=== PATIENT | female | born 1980 | race Caucasian/White ===

== ENCOUNTER 2019-06-18 08:00 | Emergency (ER) | payer OTHER ==
[~2019-06-18] VITALS: Ht 180.3 cm; Wt 82.0 kg
--- NOTE | 2019-06-18 08:41 | PHYS DOC ---
Adult General Chief Complaint Chief Complaint: SHOULDER INJURY HPI HPI 39 year old female presents with left shoulder pain. The patient has had an MRI recently and has known labral tear. She had a therapeutic massage on Tuesday of last week of the shoulder area was feeling okay. She was rubbing the posterior part of her shoulder herself sitting at the table on Tuesday and felt her shoulder dislocate. She sat up straight and it relocated. She's never had this happen before. 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 Yesterday, a friend became over there is a physical therapist. She was moving the patient's arm around to evaluate her shoulder and since that time the patient has had excruciating pain in the central shoulder. She has taken her Ultram without any relief. She is concerned that there something more acutely wrong since the dislocation. She denies falls or trauma. Review of Systems Review of Systems Constitutional: Denies fever or chills [] Eyes: Denies change in visual acuity, redness, or eye pain [] HENT: Denies nasal congestion or sore throat [] Respiratory: Denies cough or shortness of breath [] Cardiovascular: No additional information not addressed in HPI [] GI: Denies abdominal pain, nausea, vomiting, bloody stools or diarrhea [] : Denies dysuria or hematuria [] Musculoskeletal: Left shoulder pain[] Integument: Denies rash or skin lesions [] Neurologic: Denies headache, focal weakness or sensory changes [] Endocrine: Denies polyuria or polydipsia [] All other systems were reviewed and found to be within normal limits, except as documented in this note. Allergies Allergies Allergies Coded Allergies Type Severity Reaction Last Updated Verified NSAIDS (Non-Steroidal Anti-Inflamma Allergy Unknown 06/18/19 Yes Penicillins Allergy Unknown 06/18/19 Yes erythromycin base Allergy Unknown 06/18/19 Yes meperidine Allergy Unknown 06/18/19 Yes Physical Exam Physical Exam Constitutional: Well developed, well nourished, mild acute distress, non-toxic appearance. [] HENT: Normocephalic, atraumatic, bilateral external ears normal, oropharynx moist, no oral exudates, nose normal. [] Eyes: PERRLA, EOMI, conjunctiva normal, no discharge. [] Neck: Normal range of motion, no tenderness, supple, no stridor. [] Cardiovascular:Heart rate regular rhythm, no murmur [] Lungs & Thorax: Bilateral breath sounds clear to auscultation [] Abdomen: Bowel sounds normal, soft, no tenderness, no masses, no pulsatile masses. [] Skin: Warm, dry, no erythema, no rash. [] Back: No tenderness, no CVA tenderness. [] Extremities: Left shoulder exam deferred due to history and pain[] Neurologic: Alert and oriented X 3, normal motor function, normal sensory fun ction, no focal deficits noted. [] Psychologic: Affect normal, judgement normal, mood normal. [] EKG EKG [] Radiology/Procedures Radiology/Procedures [] Impressions: SHOULDER 2+V LEFT History: Shoulder pain. Recent dislocation. Technique: 3 views left shoulder. Comparison: None. Findings: Normal alignment of the glenohumeral and acromioclavicular joints. No fracture. Soft tissues unremarkable. Impression: 1. No acute osseous abnormality. Electronically signed by: Yuliana Baer DO (06/18/2019 9:15 AM) [id number] DICTATED AND SIGNED BY: YULIANA BAER DO DATE: 06/18/19914 CC: HANNA ACUÑA DO; JIM HAGER ~ Course & Med Decision Making Course & Med Decision Making Pertinent Labs and Imaging studies reviewed. (See chart for details) The patient's labs are unremarkable. Her x-ray does not show any acute osseous findings. The patient has required 2 doses of morphine 4 mg each. Review of the narcotics database shows that she is not having a prescription since November 2018. It is possible that she has a piece of the labrum inside the shoulder capsule. This could be causing her significant pain. I've advised that she follow-up today with her orthopedic surgeon. I will discharge her on a short course of Jasper 7.5 times. She is stable for discharge at this time. [] Dragon Disclaimer Dragon Disclaimer This electronic medical record was generated, in whole or in part, using a voice recognition dictation system. Departure Departure: Impression: Primary Impression: Left shoulder pain Disposition: 01 HOME, SELF-CARE Condition: STABLE Referrals: JIM HAGER (PCP) Patient Instructions: Shoulder Pain, [id number] Scripts Hydrocodone Bit/Acetaminophen (NORCO 7.5-325 TABLET) 1 Each Tablet 1 TAB PO PRN Q6HRS PRN for PAIN, #14 TAB 0 Refills Prov: HANNA ACUÑA DO 06/18/19 Problem Qualifiers Primary Impression: Left shoulder pain Chronicity: acute Qualified Codes: M25.512 - Pain in left shoulder HANNA ACUÑA DO Jun 18, 2019 08:41
[2019-06-18] MEDS ORDERED: IV NORMAL SALINE 1,000ML 1,000 ML IV ONE (08:45)
[2019-06-18] MEDS ORDERED: MORPHINE SULFATE 4 MG/ML DISP.SYRIN. IV ONE ×2 (08:45→10:00)
[2019-06-18 08:57] LABS: BASO % 1 % (0-3); EOS # 0.1 x10^3/uL (0.0-0.7); EOS % 2 % (0-3); HEMATOCRIT 41.9 % (36.0-47.0); HEMOGLOBIN 14.2 g/dL (12.0-15.5); LYMPH # 1.3 x10^3/uL (1.0-4.8); LYMPH % 31 % (24-48); MEAN CORPUSCULAR HEMOGLOBIN 30 pg (25-35); MEAN CORPUSCULAR HGB CONC 34 g/dL (31-37); MEAN CORPUSCULAR VOLUME 89 fL (79-100); MONO # 0.5 x10^3/uL (0.0-1.1); MONO % 12 % (0-9); NEUT # 2.4 x10^3uL (1.8-7.7); NEUT % 55 % (31-73); PLATELET COUNT 191 x10^3/uL (140-400); RED CELL DISTRIBUTION WIDTH 12.9 % (11.5-14.5); WHITE BLOOD COUNT 4.4 x10^3/uL (4.0-11.0)
[2019-06-18 09:05] LABS: CALCIUM 8.6 mg/dL (8.5-10.1); CREATININE 0.9 mg/dL (0.6-1.0); GFR 70.5; POTASSIUM 4.3 mmol/L (3.5-5.1)
[2019-06-18 09:11] LABS: ALBUMIN 3.9 g/dL (3.4-5.0); ALBUMIN/GLOBULIN RATIO 1.2 (1.0-1.7); TOTAL BILIRUBIN 0.2 mg/dL (0.2-1.0); TOTAL PROTEIN 7.2 g/dL (6.4-8.2)
[2019-06-18] MEDS ORDERED: ONDANSETRON PF 4 MG/2 ML VIAL. IVP ONE (09:15)
--- NOTE | 2019-06-18 09:18 | RAD ---
SHOULDER 2+V LEFT History: Shoulder pain. Recent dislocation. Technique: 3 views left shoulder. Comparison: None. Findings: Normal alignment of the glenohumeral and acromioclavicular joints. No fracture. Soft tissues unremarkable. Impression: 1. No acute osseous abnormality. Electronically signed by: Juanpablo Naik DO (06/18/2019 9:15 AM) [id number]
[2019-06-18 09:25] VITALS: BP 116/76
[2019-06-18] MEDS ORDERED: HYDR-3166 PO (09:31)
== END 2019-06-18 10:05 | disposition home or self-care (01) ==
LOC: ER 08:00
DX: M25.512 Pain in left shoulder (principal); Z88.1 Allergy status to other antibiotic agents; Z88.0 Allergy status to penicillin; Z88.5 Allergy status to narcotic agent; Z88.6 Allergy status to analgesic agent
CPT/HCPCS: 36415; 73030; 80053; 85025; 96374; 96375; 99284; J2270; J2405; J7030

== ENCOUNTER 2020-05-19 09:53 | Emergency (ER) | payer OTHER ==
[~2020-05-19] VITALS: Ht 180.3 cm; Wt 86.6 kg
[~2020-05-19 09:53] MED LIST: HYDR-3166 PO
[2020-05-19] MEDS ORDERED: IV NORMAL SALINE 1,000ML 1,000 ML IV ONE (11:00)
[2020-05-19] MEDS ORDERED: PROCHLORPERAZINE 10 MG/2 ML VIAL. IV ONE (11:15)
[2020-05-19] MEDS ORDERED: diphenhydrAMINE 50 MG/ML VIAL IVP ONE (11:15)
[2020-05-19 11:16] LABS: CALCIUM 8.9 mg/dL (8.5-10.1); GFR 62.1; POTASSIUM 4.1 mmol/L (3.5-5.1)
[2020-05-19 11:18] LABS: BASO % 1 % (0-3); EOS # 0.1 x10^3/uL (0.0-0.7); EOS % 2 % (0-3); HEMATOCRIT 41.3 % (36.0-47.0); LYMPH # 1.3 x10^3/uL (1.0-4.8); LYMPH % 23 % (24-48); MEAN CORPUSCULAR HEMOGLOBIN 30 pg (25-35); MEAN CORPUSCULAR HGB CONC 34 g/dL (31-37); MEAN CORPUSCULAR VOLUME 89 fL (79-100); MONO # 0.6 x10^3/uL (0.0-1.1); MONO % 11 % (0-9); NEUT # 3.6 x10^3uL (1.8-7.7); NEUT % 65 % (31-73); PLATELET COUNT 189 x10^3/uL (140-400); RED BLOOD COUNT 4.66 x10^6/uL (3.50-5.40); RED CELL DISTRIBUTION WIDTH 12.7 % (11.5-14.5); WHITE BLOOD COUNT 5.6 x10^3/uL (4.0-11.0)
--- NOTE | 2020-05-19 11:27 | PHYS DOC ---
Past History Past Medical History: Anemia, CVA, Migraines, Other Additional Past Medical Histor: HHT GENETIC VASCULAR CONDITION, PE X 2 Past Surgical History: Appendectomy, Cholecystectomy, , Other Additional Past Surgical Histo: LEFT HIP Alcohol Use: None General Adult EDM: Chief Complaint: HEADACHE HPI: HPI: Patient is a 40-year-old female with a history of HHT coming in for 2 weeks of worsening headache with vision changes. 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 States she started having pain behind her left sinus and I started out as a pressure 3 days after. Patient has a history of migraines and has a "migraine protocol". States she has not been getting any relief. States that headache and vision changes are worse in the afternoon. States that she woke up today with blurred vision and pain at a 4 out of 10 this morning. States she occasionally has to go to the emergency department for IV treatment of her migraines. Patient states this feels different from her typical migraines but slower behind the eye than it typically is. States that she will start seeing "auras" around lunchtime but then has severely blurred vision in the left eye by the afternoon evening time. Has been taking her Fioricet without improvement. Also started having chest pain last night she describes as left-sided that comes in waves and radiates to the back. She has a history of pulmonary embolisms but states she has not had any problems them recently since her anemia has been stable. Is on any blood thinners. Also has a history of intestinal bleeding due to her condition. Not noted any tarry stools or blood in her stool recently. Review of Systems: Review of Systems: All other systems within normal limits except for as noted in the HPI Current Medications: Current Meds: Current Medications Medications (Trade) Dose Ordered Sig/Cassidy Start Time Stop Time Status Last Admin Dose Admin Diphenhydramine HCl (Benadryl) 50 mg 1X ONCE 05/19/20 11:15 05/19/20 11:16 DC Prochlorperazine Edisylate (Compazine) 10 mg 1X ONCE 05/19/20 11:15 05/19/20 11:16 DC Sodium Chloride 1,000 ml @ 1,000 mls/hr 1X ONCE 05/19/20 11:00 05/19/20 11:59 Allergies: Allergies: Allergies Coded Allergies Type Severity Reaction Last Updated Verified NSAIDS (Non-Steroidal Anti-Inflamma Allergy Unknown 06/18/19 Yes Penicillins Allergy Unknown 06/18/19 Yes erythromycin base Allergy Unknown 06/18/19 Yes meperidine Allergy Unknown 06/18/19 Yes Physical Exam: PE: Constitutional: Well developed, well nourished, no acute distress, non-toxic appearance. [] HENT: Normocephalic, atraumatic, bilateral external ears normal, nose normal. [] Eyes: PERRLA, conjunctiva normal, no discharge, extraocular is intact, symmetric pressures. [] Neck: No rigidity, supple, no stridor. [] Cardiovascular: Regular rate and rhythm, brisk cap refill, symmetric upper extremity pulses, no murmurs rubs or gallops [] Lungs & Thorax: Non labored symmetric respirations, no tachypnea or respiratory distress. Lung sounds clear to auscultation [] Abdomen: Soft, nondistended. Skin: Warm, dry, no erythema, no rash. [] Back: Unremarkable Extremities: No deformities, range of motion grossly intact, no lower extremity edema [] Neurologic: Alert and oriented X 3, no focal deficits noted. [] Psychologic: Affect normal, judgement normal, mood normal. [] Current Patient Data: Labs: Laboratory Tests Test 05/19/20 10:39 POC Urine HCG, Qualitative hcg negative (Negative) Vital Signs: Vital Signs Date Time Temp Pulse Resp B/P (MAP) Pulse Ox O2 Delivery O2 Flow Rate FiO2 05/19/20 10:05 98.5 86 20 121/72 (88) 97 Room Air EKG: EKG: Normal sinus rhythm with right axis deviation, no ST elevation or depression, no ectopy, normal intervals. [] Radiology/Procedures: Radiology/Procedures: CT HEAD WITHOUT AND WITH IV CONTRAST History: Reason: Pain. Thrombosis, venogram - per Dr Saleem 60 sec delay / Spl. Instructions: / History: Comparison: None. Technique: CT of the head without and with intravenous contrast. Venogram protocol. Exposure: One or more of the following individualized dose reduction techniques were utilized for this examination: 1. Automated exposure control 2. Adjustment of the mA and/or kV according to patient size 3. Use of iterative reconstruction technique. Findings: No intracranial hemorrhage. No mass effect. No hydrocephalus. Extra-axial spaces are unremarkable. Patent superior sagittal, straight, transverse and sigmoid venous sinuses. No evidence of thrombosis or stenosis. No pathologic enhancement. Imaged orbits are unremarkable. Imaged paranasal sinuses and mastoid air cells are clear. No acute calvarial fracture. Impression: 1. No acute intracranial abnormality. 2. No evidence of dural venous sinus thrombosis. [] Heart Score: Risk Factors: Risk Factors: DM, Current or recent (<one month) smoker, HTN, HLP, family history of CAD, obesity. Risk Scores: Score 0 - 3: 2.5% MACE over next 6 weeks - Discharge Home Score 4 - 6: 20.3% MACE over next 6 weeks - Admit for Clinical Observation Score 7 - 10: 72.7% MACE over next 6 weeks - Early Invasive Strategies Course & Med Decision Making: Course & Med Decision Making Pertinent Labs and Imaging studies reviewed. (See chart for details) Labs and CT normal. Patient's headache pain improved down to a 2 out of 10. Patient is requesting to go home to rest instead of any further medical management in the emergency department. Discussed return precautions. Patient discharged with . [] Dragon Disclaimer: Dragon Disclaimer: This electronic medical record was generated, in whole or in part, using a voice recognition dictation system. Departure Departure: Impression: Primary Impression: Migraine Disposition: 01 DC HOME SELF CARE/HOMELESS Condition: IMPROVED Referrals: JIM HAGER (PCP) Patient Instructions: General Headache Without Cause Scripts Hydrocodone/Acetaminophen (Hydrocodone-Acetamin 5-325 mg) 1 Each Tablet 1 EACH PO PRN Q6-8HRS PRN for PAIN for 3 Days, #10 TAB Prov: GAUDENCIO RAY MD 05/19/20 Promethazine Hcl (PROMETHAZINE HCL) 25 Mg Tablet 1 TAB PO PRN Q6HRS PRN for 5, #20 TAB Prov: GAUDENCIO RAY MD 05/19/20 GAUDENCIO RAY MD May 19, 2020 11:27
[2020-05-19 11:29] LABS: ALBUMIN/GLOBULIN RATIO 1.2 (1.0-1.7); C REACTIVE PROTEIN 0.5 mg/L (0-3.3); MAGNESIUM 1.9 mg/dL (1.8-2.4); TOTAL BILIRUBIN 0.3 mg/dL (0.2-1.0); TOTAL PROTEIN 7.3 g/dL (6.4-8.2)
[2020-05-19 11:36] LABS: BILIRUBIN,URINE NEG (NEG); CLARITY,URINE CLEAR; COLOR,URINE YELLOW; GLUCOSE,URINE NEG (NEG)
[2020-05-19 11:37] VITALS: BP 94/55
[2020-05-19 11:37] LABS: NITRITE,URINE NEG (NEG)
[2020-05-19 11:38] LABS: BACTERIA,URINE 0 /HPF (0-FEW); RBC,URINE OCC /HPF (0-2); SQUAMOUS EPITHELIAL CELL,UR MOD /LPF; WBC,URINE OCC /HPF (0-4)
[2020-05-19] MEDS ORDERED: CONTRAST GIVEN. MC PRN (12:30)
[2020-05-19] MEDS ORDERED: IOHEXOL 300 MG/ML 75 ML VIAL. IV ONE (12:30)
--- NOTE | 2020-05-19 13:01 | RAD ---
CT HEAD WITHOUT AND WITH IV CONTRAST History: Reason: Pain. Thrombosis, venogram - per Dr Saleem 60 sec delay / Spl. Instructions: / Hist ory: Comparison: None. Technique: CT of the head without and with intravenous contrast. Venogram protocol. Exposure: One or more of the following individualized dose reduction techniques were utilized for thi s examination: 1. Automated exposure control 2. Adjustment of the mA and/or kV according to patient size 3. Use of iterative reconstruction technique. Findings: No intracranial hemorrhage. No mass effect. No hydrocephalus. Extra-axial spaces are unremarkable. Patent superior sagittal, straight, transverse and sigmoid venous sinuses. No evidence of thrombosis or stenosis. No pathologic enhancement. Imaged orbits are unremarkable. Imaged paranasal sinuses and mastoid air cells are clear. No acute ca lvarial fracture. Impression: 1. No acute intracranial abnormality. 2. No evidence of dural venous sinus thrombosis. Electronically signed by: Juanpablo Naik DO (05/19/2020 12:59 PM) [id number]
[2020-05-19] MEDS ORDERED: DEXAMETHASONE SOD PHOS 10 MG/ML VIAL. IVP ONE (13:15)
[2020-05-19] MEDS ORDERED: HYDR-2759 PO (13:52)
[2020-05-19] MEDS ORDERED: PROM25TA10 PO (13:52)
--- NOTE | 2020-05-19 18:38 | EKG ---
[facility] ED [facility] [address] [place] [id number] Test Date: 2020-05-19 Test Time: 10:52:52 Pat Name: VERO SINGH Department: Room: Gender: F Doctor Of Nurse Anesthesia Practice: [facility] : 1980 Requested By: GAUDENCIO RAY Order Number: [id number] Reading MD: Serafin Jo Measurements Intervals [place] Rate: 82 P: 59 VT: 122 QRS: 97 QRSD: 82 T: 30 QT: 378 QTc: 445 Interpretive Statements SINUS RHYTHM Electronically Signed On 05-20-2020 9:06:27 [employer] MAINTAIN[employer] by Serafin Jo
== END 2020-05-19 13:58 | disposition home or self-care (01) ==
LOC: ER 09:53
DX: G43.909 Migraine, unspecified, not intractable, without status migrainosus (principal); R07.89 Other chest pain; I78.0 Hereditary hemorrhagic telangiectasia; Z86.2 Personal history of diseases of the blood and blood-forming organs and certain disorders involving the immune mechanism; Z86.73 Personal history of transient ischemic attack (TIA), and cerebral infarction without residual deficits; Z88.0 Allergy status to penicillin; Z88.6 Allergy status to analgesic agent; Z88.8 Allergy status to other drugs, medicaments and biological substances
CPT/HCPCS: 36415; 70470; 80053; 81001; 81025; 83605; 83735; 83880; 84484; 85025; 85379; 86140; 87040; 93005; 96361; 96374; 96375; 99285; J0780; J1100; J1200; J3010; J7030; Q9967

== ENCOUNTER 2020-11-18 10:24 | Emergency (ER) | payer OTHER ==
[~2020-11-18] VITALS: Ht 180.3 cm; Wt 75.0 kg
[~2020-11-18 10:24] MED LIST changes: +HYDR-2759 PO; +PROM25TA10 PO
[2020-11-18] MEDS: IV NORMAL SALINE 1,000ML 1,000 ML IV ONE (11:05)
[2020-11-18 11:17] LABS: BASO % 1 % (0-3); EOS # 0.1 x10^3/uL (0.0-0.7); EOS % 2 % (0-3); HEMATOCRIT 40.9 % (36.0-47.0); HEMOGLOBIN 13.8 g/dL (12.0-15.5); LYMPH # 1.2 x10^3/uL (1.0-4.8); LYMPH % 22 % (24-48); MEAN CORPUSCULAR HEMOGLOBIN 30 pg (25-35); MEAN CORPUSCULAR HGB CONC 34 g/dL (31-37); MEAN CORPUSCULAR VOLUME 90 fL (79-100); MONO # 0.6 x10^3/uL (0.0-1.1); MONO % 11 % (0-9); NEUT # 3.6 x10^3uL (1.8-7.7); NEUT % 65 % (31-73); PLATELET COUNT 174 x10^3/uL (140-400); RED BLOOD COUNT 4.55 x10^6/uL (3.50-5.40); RED CELL DISTRIBUTION WIDTH 13.1 % (11.5-14.5); WHITE BLOOD COUNT 5.6 x10^3/uL (4.0-11.0)
--- NOTE | 2020-11-18 11:18 | PHYS DOC ---
Past History Past Medical History: Anemia, CVA, Migraines, Other Additional Past Medical Histor: HHT GENETIC VASCULAR CONDITION, PE X 2 Past Surgical History: No Surgical History Additional Past Surgical Histo: LEFT HIP Alcohol Use: None General Adult EDM: Chief Complaint: DIZZY/LIGHT HEADED HPI: HPI: Patient is a 40-year-old female being seen in the ER for dizziness/lightheadedness that started 2 days ago. Patient reports that she st arted noticing "vertigo spells". Patient reports that she has a history of migraines, vertigo, AVM, HHT. Patient reports of the last time that she had dizziness she was also having a GI bleed. Patient denies blood in stools, nausea, vomiting, headache, chest pain, shortness of breath, abdominal pain. Patient reports that the dizziness is worse with position changes. Review of Systems: Review of Systems: 14 body systems of the review of systems have been reviewed. See HPI for pertinent positive and negative responses, otherwise all other systems are negative, nonpertinent or noncontributory Current Medications: Current Meds: Current Medications Medications (Trade) Dose Ordered Sig/Cassidy Start Time Stop Time Status Last Admin Dose Admin Sodium Chloride 1,000 ml @ 1,000 mls/hr 1X ONCE 11/18/20 10:45 11/18/20 11:44 11/18/20 11:05 1,000 MLS/HR Allergies: Allergies: Allergies Coded Allergies Type Severity Reaction Last Updated Verified NSAIDS (Non-Steroidal Anti-Inflamma Allergy Unknown 06/18/19 Yes Penicillins Allergy Unknown 06/18/19 Yes erythromycin base Allergy Unknown 06/18/19 Yes meperidine Allergy Unknown 06/18/19 Yes Physical Exam: PE: Constitutional: Well developed, well nourished, no acute distress, non-toxic appearance. [] HENT: Normocephalic, atraumatic, bilateral external ears normal, oropharynx moist, no oral exudates, nose normal. [] Eyes: PERRLA, EOMI, conjunctiva normal, no discharge. [] Neck: Normal range of motion, no tenderness, supple, no stridor. [] Cardiovascular:Heart rate regular rhythm, no murmur [] Lungs & Thorax: Bilateral breath sounds clear to auscultation [] Abdomen: Bowel sounds normal, soft, no tenderness, no masses, no pulsatile masses. [] Skin: Warm, dry, no erythema, no rash. [] Back: Normal range of motion Extremities: No tenderness, no cyanosis, no clubbing, ROM intact, no edema. [] Neurologic: Alert and oriented X 3, normal motor function, normal sensory function, no focal deficits noted. [] Psychologic: Affect normal, judgement normal, mood normal. [] Current Patient Data: Labs: Laboratory Tests Test 11/18/20 10:58 11/18/20 11:45 White Blood Count 5.6 x10^3/uL Red Blood Count 4.55 x10^6/uL Hemoglobin 13.8 g/dL Hematocrit 40.9 % Mean Corpuscular Volume 90 fL Mean Corpuscular Hemoglobin 30 pg Mean Corpuscular Hemoglobin Concent 34 g/dL Red Cell Distribution Width 13.1 % Platelet Count 174 x10^3/uL Neutrophils (%) (Auto) 65 % Lymphocytes (%) (Auto) 22 % Monocytes (%) (Auto) 11 % Eosinophils (%) (Auto) 2 % Basophils (%) (Auto) 1 % Neutrophils # (Auto) 3.6 x10^3uL Lymphocytes # (Auto) 1.2 x10^3/uL Monocytes # (Auto) 0.6 x10^3/uL Eosinophils # (Auto) 0.1 x10^3/uL Basophils # (Auto) 0.0 x10^3/uL Sodium Level 141 mmol/L Potassium Level 4.1 mmol/L Chloride Level 105 mmol/L Carbon Dioxide Level 30 mmol/L Anion Gap 6 Blood Urea Nitrogen 13 mg/dL Creatinine 0.7 mg/dL Estimated GFR (Cockcroft-Gault) 93.6 BUN/Creatinine Ratio 19 Glucose Level 88 mg/dL Calcium Level 8.5 mg/dL Total Bilirubin 0.4 mg/dL Aspartate Amino Transf (AST/SGOT) 24 U/L Alanine Aminotransferase (ALT/SGPT) 27 U/L Alkaline Phosphatase 51 U/L Troponin I Quantitative < 0.017 ng/mL Total Protein 6.7 g/dL Albumin 3.9 g/dL Albumin/Globulin Ratio 1.4 Urine Collection Type Unknown Urine Color Straw Urine Clarity Clear Urine pH 7.5 Urine Specific [place] 1.010 Urine Protein Neg Urine Glucose (UA) Neg mg/dL Urine Ketones (Stick) Neg mg/dL Urine Blood Neg Urine Nitrite Neg Urine Bilirubin Neg Urine Urobilinogen Dipstick 0.2 mg/dL Urine Leukocyte Esterase Neg Urine RBC 0 /HPF Urine WBC 0 /HPF Urine Squamous Epithelial Cells Mod /LPF Urine Bacteria 0 /HPF Current Medications Medications (Trade) Dose Ordered Sig/Cassidy Route PRN Reason Start Time Stop Time Status Last Admin Dose Admin Sodium Chloride 1,000 ml @ 1,000 mls/hr 1X ONCE IV 11/18/20 10:45 11/18/20 11:44 DC 11/18/20 11:05 Vital Signs: Vital Signs Date Time Temp Pulse Resp B/P (MAP) Pulse Ox O2 Delivery O2 Flow Rate FiO2 11/18/20 10:34 79 18 125/74 100 Room Air EKG: EKG: EKG performed by ER staff at 1141 shows sinus rhythm, no STEMI as read Dr. Paiz at 1148. [] Radiology/Procedures: Radiology/Procedures: PROCEDURE: CT HEAD WO CONTRAST EXAM: CT HEAD WITHOUT CONTRAST. HISTORY: Dizziness, headache. TECHNIQUE: Computed tomography of the head was performed without intravenous contrast. One or more of the following individualized dose reduction techniques were utilized for this examination: 1. Automated exposure control. 2. Adjustment of the mA and/or kV according to patient size. 3. Use of iterative reconstruction technique. COMPARISON: 05/19/2020. FINDINGS: There is no intracranial hemorrhage. Saini-white differentiation is preserved. The ventricles are normal in size and position. The visualized paranasal sinuses appear clear. The orbits are unremarkable. The temporal bones are unremarkable. The calvarium reveals no suspicious lesions. IMPRESSION: 1. No acute intracranial findings. Electronically signed by: Keila Reyes MD (11/18/2020 11:18 AM) [id number] DICTATED AND SIGNED BY: GABRIELLE REYES MD DATE: 11/18/20 1116 CC: JIM HAGER; SUKHDEV YARBROUGH ABRADING MACHINE TENDER ~MTH0 0 PROCEDURE: PORTABLE CHEST 1V INDICATION: Reason: DIZZINESS, HX HHT/VASCULAR DISEASE / Spl. Instructions: / History: COMPARISON: None. FINDINGS: Single view of chest obtained. No definite focal airspace consolidation. Cardiac silhouette is unremarkable. IMPRESSION: * No focal airspace consolidation or edema. Electronically signed by: Angeles Mehta MD (11/18/2020 11:27 AM) DESKTOP- [id number] DICTATED AND SIGNED BY: ANGELES MEHTA MD DATE: 11/18/20 1126 CC: JIM HAGER; SUKHDEV YARBROUGH ABRADING MACHINE TENDER ~MTH0 0 [] Heart Score: C/O Chest Pain: No Risk Factors: Risk Factors: DM, Current or recent (<one month) smoker, HTN, HLP, family history of CAD, obesity. Risk Scores: Score 0 - 3: 2.5% MACE over next 6 weeks - Discharge Home Score 4 - 6: 20.3% MACE over next 6 weeks - Admit for Clinical Observation Score 7 - 10: 72.7% MACE over next 6 weeks - Early Invasive Strategies Course & Med Decision Making: Course & Med Decision Making Pertinent Labs and Imaging studies reviewed. (See chart for details) Patient is a 40-year-old female being seen in the ER for dizziness/lightheadedness that started 2 days ago. Work-up in the ER consisted of blood work, UA, chest x-ray, CT scan of head. Patient was treated in the ER with saline as dehydration is a common cause of lightheadedness. Work-up in the ER was unremarkable. Patient negative for orthostatic hypotension. Given patient's history of vertigo, I think it is likely that patient has vertigo symptoms currently. Patient treated with Antivert in the ER prior to discharge. She reports improvement in her symptoms after the Antivert. I discussed with patient all findings and diagnostic testing as well as the need to follow-up with PCP for further evaluation and treatment or return to the ER if any new or worsening symptoms. Strict return precautions were also discussed at length. Patient voiced understanding and agreement with the plan. Patient is hemodynamically stable at the time of disposition. Dragon Disclaimer: Dragon Disclaimer: This electronic medical record was generated, in whole or in part, using a voice recognition dictation system. Departure Departure: Impression: Primary Impression: Vertigo Disposition: 01 HOME / SELF CARE / HOMELESS Condition: GOOD Referrals: JIM HAGER (PCP) Patient Instructions: Dizziness Additional Instructions: You were seen in the ER today for lightheadedness. As we discussed, your work- up in the ER was unremarkable. You were negative for something called orthostatic hypotension. You were treated in the ER with fluids and Antivert. You can continue to take Antivert as needed at home. You can obtain this [id number]. Please change positions slowly since this does cause lightheadedness to prevent falls. Increase your fluids at home. Follow-up with your primary care provider tomorrow regarding your ER visit today. Return to the ER if you develop falls, increased lightheadedness, chest pain, shortness of breath, syncope, nausea, vomiting, blood in your stools or vomit. EMERGENCY DEPARTMENT GENERAL DISCHARGE INSTRUCTIONS Thank you for coming to [facility] (ED) today and trusting us with you care. We trust that you had a positivie experience in our Emergency Department. If you wish to speak to the department management, you may call the director at [phone]. YOUR FOLLOW UP INSTRUCTIONS ARE FOLLOWS: 1. Do you have a private Doctor? If you do not have a private doctor, please ask for a resource list of physicians or clinics that may be able to assist you with follow up care. 2. The Emergency Physician has interpreted your x-rays. The X-Ray specialist will also review them. If there is a change in the findings, you will be notified in 48 hours when at all possible. 3. A lab test or culture has been done, your results will be reviewed and you will be notified if you need a change in treatment. ADDITIONAL INSTRUCTIONS AND INFORMATION: 1. Your care today has been supervised by a physician who is specially trained in emergency care. Many problems require more than one evaluation for a complete diagnosis and treatment. We recommend that you schedule your follow up appointment as recommended to ensure complete treatment of you illness or injury. If you are unable to obtain follow up care and continue to have a problem, or if your condition worsens, we recommend that you return to the ED. 2. We are not able to safely determine your condition over the phone nor are we able to give sound medical advice over the phone. For these safety reasons, if you call for medical advice we will ask you to come to the ED for further evaluation. 3. If you have any questions regarding these discharge instructions please call the ED at [phone]. SAFETY INFORMATION: In the interest of safety, wellness, and injury prevention; we encourage you to wear your sealbelt, if you smoke; quite smoking, and we encourage family to use a protective helmet for bicycling and other sporting events that present an increased risk for head injury. IF YOUR SYMPTOMS WORSEN OR NEW SYMPTOMS DEVELOP, OR YOU HAVE CONCERNS ABOUT YOUR CONDITION; OR IF YOUR CONDITION WORSENS WHILE YOU ARE WAITING FOR YOUR FOLLOW UP APPOINTMENT; EITHER CONTACT YOUR PRIMARY CARE DOCTOR, THE PHYSICIAN WHOSE NAME AND NUMBER YOU WERE Christian ANDERSON, OR RETURN TO THE ED IMMEDIATELY. Scripts Meclizine Hcl (MECLIZINE HCL) 25 Mg Tablet 25 MG PO BID PRN for vertigo for 2 Days, #4 TAB 0 Refills Prov: SUKHDEV YARBROUGH APRN 11/18/20 SUKHDEV YARBROUGH APRN Nov 18, 2020 11:18
[2020-11-18 11:25] LABS: CALCIUM 8.5 mg/dL (8.5-10.1); CREATININE 0.7 mg/dL (0.6-1.0); GFR 93.6; POTASSIUM 4.1 mmol/L (3.5-5.1)
--- NOTE | 2020-11-18 11:29 | RAD ---
INDICATION: Reason: DIZZINESS, HX HHT/VASCULAR DISEASE / Spl. Instructions: / History: COMPARISON: None. FINDINGS: Single view of chest obtained. No definite focal airspace consolidation. Cardiac silhouette is unremarkable. IMPRESSION: * No focal airspace consolidation or edema. Electronically signed by: Jignesh Baugh MD (11/18/2020 11:27 AM) [id number]
[2020-11-18 11:31] LABS: ALBUMIN 3.9 g/dL (3.4-5.0); ALBUMIN/GLOBULIN RATIO 1.4 (1.0-1.7); TOTAL BILIRUBIN 0.4 mg/dL (0.2-1.0); TOTAL PROTEIN 6.7 g/dL (6.4-8.2)
--- NOTE | 2020-11-18 12:19 | EKG ---
[address] [address] Test Date: 2020-11-18 Test Time: 11:41:13 Pat Name: VERO SINGH Department: Room: Gender: F [employer] Worker: KATIE : 1980 Requested By: SUKHDEV YARBROUGH Order Number: [id number] Reading MD: Measurements Intervals [place] Rate: 73 P: 31 NE: 130 QRS: 88 QRSD: 84 T: 31 QT: 408 QTc: 453 Interpretive Statements SINUS RHYTHM NORMAL ECG RI6.02 No previous ECG available for comparison
[2020-11-18 12:23] LABS: COLOR,URINE STRAW
[2020-11-18 12:24] LABS: BACTERIA,URINE 0 /HPF (0-FEW); BILIRUBIN,URINE NEG (NEG); CLARITY,URINE CLEAR; GLUCOSE,URINE NEG (NEG); NITRITE,URINE NEG (NEG); RBC,URINE 0 /HPF (0-2); SQUAMOUS EPITHELIAL CELL,UR MOD /LPF; UROBILINOGEN,URINE 0.2 mg/dL (0.2 mg/dL); WBC,URINE 0 /HPF (0-4)
[2020-11-18] MEDS: MECLIZINE 12.5 MG TABLET. PO ONE (12:42)
[2020-11-18 13:25] VITALS: BP 113/69
[2020-11-18] MEDS ORDERED: MECL-75 PO (13:25)
== END 2020-11-18 13:35 | disposition home or self-care (01) ==
LOC: ER 10:24
DX: R42 Dizziness and giddiness (principal); G43.909 Migraine, unspecified, not intractable, without status migrainosus; Z86.2 Personal history of diseases of the blood and blood-forming organs and certain disorders involving the immune mechanism; Z86.73 Personal history of transient ischemic attack (TIA), and cerebral infarction without residual deficits; Z88.6 Allergy status to analgesic agent; Z88.0 Allergy status to penicillin; Z88.1 Allergy status to other antibiotic agents; Z88.8 Allergy status to other drugs, medicaments and biological substances
CPT/HCPCS: 36415; 70450; 71045; 80053; 81001; 84484; 85025; 93005; 96360; 99285; J7030